=== PATIENT | male | born 1985 | race Two or more races ===

== ENCOUNTER 2019-12-23 20:29 | Emergency (ER) | payer MEDICAID ==
[~2019-12-23] VITALS: Ht 172.7 cm; Wt 80.7 kg
[2019-12-23 20:41] VITALS: Ht 172.7 cm; Wt 80.7 kg
[2019-12-23 21:40] VITALS: BP 138/87
== END 2019-12-23 21:40 | disposition home or self-care (01) ==
LOC: D.ER 20:29
DX: B34.9 Viral infection, unspecified (principal); R07.9 Chest pain, unspecified; R19.7 Diarrhea, unspecified

== ENCOUNTER 2020-08-03 10:06 | Inpatient (IN) | payer OTHER ==
[~2020-08-03] VITALS: Ht 172.7 cm; Wt 79.5 kg
[~2020-08-03 10:06] MED LIST: COLACE100 MG PO; CRANBERRY PILLS; DULCOLAX5 MG PO; LIBRIUM25 MG PO; STERAPRED DS 1010 MG PO; VITAMIN D10000 UNIT PO; VITAMIN E600 UNIT PO
[2020-08-03 10:16] LABS: BASOPHILS 0.1 % (0-2); EOSINOPHILS 0 % (0-7); HEMATOCRIT 38.3 % (42.0-54.0); HEMOGLOBIN 13.4 g/dL (13.5-17.5); IMMATURE GRANULOCYTES 0.2 % (0-5); LYMPHOCYTE ABS# 0.64 10x3/uL (1.32-3.57); LYMPHOCYTES 7.3 % (15-50); MCH 32.4 pg (26.0-34.0); MCV 92.5 fL (80.0-100.0); MEAN PLATELET VOLUME 9.8 fL (7.4-10.4); MONOCYTES 6.9 % (2-11); NEUTROPHIL ABS# 7.47 10x3/uL (1.78-5.38); NEUTROPHILS 85.5 % (40-80); PLATELET COUNT 188 10x3/uL (130-400); RBC 4.14 10x6/uL (4.20-6.10); WBC 8.7 10x3/uL (4.8-10.8)
[2020-08-03 10:31] LABS: CALC OSMOLALITY 264 mosm/kg (275-300); CARBON DIOXIDE 29.2 mmol/L (21.0-32.0); CHLORIDE - SERUM 94 mmol/L (98-107); GLUCOSE 148 mg/dL (74-106); POTASSIUM - SERUM 3.5 mmol/L (3.5-5.1); SODIUM 131 mmol/L (136-145); UREA NITROGEN 9 mg/dL (7-18); eGFR NON AFRICAN AMERICAN 90 mL/min (90-120)
[2020-08-03 10:47] LABS: ALBUMIN 4.1 g/dL (3.4-5.0); ALKALINE PHOSPHATASE 76 U/L (30-120); ALT (SGPT) 58 U/L (10-68); BILIRUBIN - TOTAL 3.66 mg/dL (0.2-1.3); CKMB 10.1 U/L (0.0-3.6); MAGNESIUM - SERUM 1.1 mg/dL (1.8-2.4); PROTEIN - SERUM 8.5 g/dL (6.4-8.2); THYROID STIMULATING HORMONE 0.99 uIU/mL (0.36-3.74)
[2020-08-03 10:48] LABS: CREATINE KINASE 2088 UL (21-232); TROPONIN-I < 0.017 ng/mL (0.000-0.060)
[2020-08-03 11:00] LABS: APTT 25.5 SECONDS (22.8-39.4); INR 1.21 (0.85-1.17); PROTIME 14.2 SECONDS (11.6-15.0)
[2020-08-03 16:41] VITALS: Ht 172.7 cm; Wt 79.5 kg
[2020-08-03 20:00] VITALS: BP 131/88
[2020-08-03 21:00] VITALS: BP 137/88
[2020-08-04] VITALS: BP 135/89
[2020-08-04 04:00] VITALS: BP 136/92
[2020-08-04 06:52] LABS: BASOPHILS 0.2 % (0-2); EOSINOPHILS 0.2 % (0-7); HEMATOCRIT 38.4 % (42.0-54.0); HEMOGLOBIN 12.8 g/dL (13.5-17.5); IMMATURE GRANULOCYTES 0.3 % (0-5); LYMPHOCYTE ABS# 1.44 10x3/uL (1.32-3.57); LYMPHOCYTES 23.4 % (15-50); MCH 31.8 pg (26.0-34.0); MCHC 33.3 g/dL (31.0-37.0); MEAN PLATELET VOLUME 10.9 fL (7.4-10.4); MONOCYTES 8.9 % (2-11); NEUTROPHIL ABS# 4.13 10x3/uL (1.78-5.38); PLATELET COUNT 199 10x3/uL (130-400); RBC 4.02 10x6/uL (4.20-6.10); RDW 11.8 % (11.5-14.5)
[2020-08-04 06:57] LABS: MCV 95.5 fL (80.0-100.0); WBC 6.2 10x3/uL (4.8-10.8)
--- NOTE | 2020-08-04 07:10 | NUR ---
PT RESTING IN BED WITH EYES OPEN. RESPIRATIONS ARE EVEN AND UNLABORED. PT IS AAO X 4 AND ANSWERS ALL QUESTIONS APPROPRIATELY. PT DENIES PRESENCE OF PAIN/N/V/DYSPNEA/SOB AT THIS TIME. PIV TO RIGHT FA INFUSING PER ORDER WITHOUT COMPROMISE. INCENTIVE SPIROMETER AT BEDSIDE AND ENCOURAGED. GOOD EFFORT WITH IS AND 1200 REACHED. PT VERBALIZES UNDERSTANDING AND DENIES FURTHER QUESTIONS. PT DENIES PRESENCE OF DIZZINESS/NUMBNESS/TINGLING. BED IS IN THE LOWEST POSITION. CALL LIGHT AND BEDSIDE TABLE ARE WITHIN REACH. SIDE RAILS X 2. PT DENIES FURTHER NEEDS. WILL CONT TO MONITOR.
[2020-08-04 07:29] LABS: ALBUMIN 3.3 g/dL (3.4-5.0); ALKALINE PHOSPHATASE 65 U/L (30-120); ALT (SGPT) 48 U/L (10-68); CALCIUM 8.5 mg/dL (8.5-10.1); CARBON DIOXIDE 27.8 mmol/L (21.0-32.0); CHLORIDE - SERUM 96 mmol/L (98-107); CREATININE - SERUM 0.9 mg/dL (0.6-1.3); MAGNESIUM - SERUM 1.5 mg/dL (1.8-2.4); PHOSPHOROUS 2.9 mg/dL (2.5-4.9); PROTEIN - SERUM 7.4 g/dL (6.4-8.2); SODIUM 135 mmol/L (136-145); eGFR NON AFRICAN AMERICAN > 90 mL/min (90-120)
[2020-08-04 07:31] LABS: CALC OSMOLALITY 266 mosm/kg (275-300); GLUCOSE 80 mg/dL (74-106); UREA NITROGEN 6 mg/dL (7-18)
[2020-08-04 07:33] LABS: INR 1.18 (0.85-1.17); PROTIME 13.9 SECONDS (11.6-15.0)
[2020-08-04 07:34] LABS: POTASSIUM - SERUM 2.7 mmol/L (3.5-5.1)
--- NOTE | 2020-08-04 07:35 | NUR ---
CRITICAL LAB VALUE RECD FROM RENATA IN LAB. ORDER PLACED FOR K+ REDRAW TO VERIFY CRITICAL RESULT.
[2020-08-04 08:22] VITALS: BP 107/70
[2020-08-04 10:12] LABS: HEPATITIS C ANTIBODY <0.1 S/CO RAT (0.0-0.9)
[2020-08-04 11:22] LABS: UDS - AMPHET NEGATIVE QUAL (NEGATIVE); UDS - BARB NEGATIVE QUAL (NEGATIVE); UDS - BENZO POSITIVE QUAL (NEGATIVE); UDS - COCAINE NEGATIVE QUAL (NEGATIVE); UDS - OPIATE NEGATIVE QUAL (NEGATIVE); UDS - PCP NEGATIVE QUAL (NEGATIVE); UDS - THC NEGATIVE QUAL (NEGATIVE)
[2020-08-04 11:38] LABS: BACTERIA FEW HPF (NONE SEEN); BILIRUBIN NEGATIVE (NEGATIVE); KETONE SMALL mg/dL (NEGATIVE); NITRITE NEGATIVE (NEGATIVE); SQUAMOUS EPITHELIAL RARE HPF (0-4); UROBILINOGEN NORMAL mg/dL (< 2); WHITE CELLS - URINE OCC HPF (0-1)
[2020-08-04 12:43] VITALS: BP 151/87
[2020-08-04 16:54] VITALS: BP 138/87
[2020-08-04 20:00] VITALS: BP 146/112
[2020-08-05] VITALS: BP 151/87
--- NOTE | 2020-08-05 00:11 | NUR ---
I have reviewed this patient and I concur with the Shift Assessment completed by the Licensed Practical Nurse today this shift.
[2020-08-05 04:00] VITALS: BP 135/86
[2020-08-05 05:40] LABS: BASOPHILS 0.1 % (0-2); EOSINOPHILS 0.7 % (0-7); HEMATOCRIT 37.3 % (42.0-54.0); HEMOGLOBIN 12.8 g/dL (13.5-17.5); IMMATURE GRANULOCYTES 0.4 % (0-5); LYMPHOCYTES 21.6 % (15-50); MCH 32.1 pg (26.0-34.0); MCHC 34.3 g/dL (31.0-37.0); MEAN PLATELET VOLUME 10.8 fL (7.4-10.4); MONOCYTES 11.5 % (2-11); NEUTROPHIL ABS# 4.56 10x3/uL (1.78-5.38); NEUTROPHILS 65.7 % (40-80); PLATELET COUNT 189 10x3/uL (130-400); RBC 3.99 10x6/uL (4.20-6.10); RDW 11.7 % (11.5-14.5)
[2020-08-05 05:45] LABS: MCV 93.5 fL (80.0-100.0)
[2020-08-05 06:02] LABS: ALBUMIN 3.3 g/dL (3.4-5.0); ALKALINE PHOSPHATASE 62 U/L (30-120); ALT (SGPT) 49 U/L (10-68); BILIRUBIN - TOTAL 2.52 mg/dL (0.2-1.3); CALC OSMOLALITY 266 mosm/kg (275-300); CALCIUM 8.9 mg/dL (8.5-10.1); CARBON DIOXIDE 24.6 mmol/L (21.0-32.0); CHLORIDE - SERUM 99 mmol/L (98-107); CREATININE - SERUM 0.9 mg/dL (0.6-1.3); GLUCOSE 88 mg/dL (74-106); MAGNESIUM - SERUM 1.4 mg/dL (1.8-2.4); PROTEIN - SERUM 7.3 g/dL (6.4-8.2); SODIUM 135 mmol/L (136-145); UREA NITROGEN 7 mg/dL (7-18); eGFR NON AFRICAN AMERICAN > 90 mL/min (90-120)
[2020-08-05 06:14] LABS: PHOSPHOROUS 4.2 mg/dL (2.5-4.9)
[2020-08-05 06:20] LABS: POTASSIUM - SERUM 2.9 mmol/L (3.5-5.1)
[2020-08-05 08:28] VITALS: BP 127/102
--- NOTE | 2020-08-05 10:00 | NUR ---
ASSESSMENT PER FLOW SHEET. PATIENT IS WITHOUT DISTRESS. DENIES NEEDS. CALL LIGHT IN REACH.
[2020-08-05] MEDS ORDERED: FLORAJEN3 CAPS460 MG PO (10:50)
[2020-08-05] MEDS ORDERED: MUCINEX600 MG PO (10:50)
[2020-08-05] MEDS ORDERED: TESSALON PERLE100 MG PO (10:50)
[2020-08-05] MEDS ORDERED: FOLIC ACID1 MG PO (10:51)
[2020-08-05] MEDS ORDERED: OMNICEF300 MG PO (10:51)
[2020-08-05] MEDS ORDERED: VITAMIN B-1100 M1 PO (10:51)
[2020-08-05] MEDS ORDERED: LIBRIUM25 MG PO ×2 (10:52→11:34)
[2020-08-05] MEDS ORDERED: ZITHROMAX500 MG PO (10:52)
[2020-08-05 11:05] VITALS: BP 152/99
[2020-08-05 11:07] VITALS: BP 152/99
[2020-08-05] MEDS ORDERED: CLONIDINE HCL0.1 MG PO (11:34)
--- NOTE | 2020-08-05 12:49 | MORECARE ---
CASE MANAGEMENT DISCHARGE SUMMARY PATIENT: DARCY RUIZ JR UNIT: [id number] ADM DATE: 08/04/20 AGE: 34 : 83 SEX: M ROOM/BED: D.2210 AUTHOR: RASTA,DOC PHYSICIAN: REFERRING PHYSICIAN: PARAM GLASS MD DATE OF SERVICE: 08/05/20 Case Management Discharge Planning Summary CT Patient Name: DARCY RUIZ Attending MD : PARAM WEIR Medical Record: [id number] Encounter : [id number] Facility : [address] [place] [address] Medical Admission Date : 08/04/2020 8:27 Center Discharge Date : [address] [place] [address] Date of : DC Plan ID : [id number] Age/Sex/Martia : 34/ M/D Printed on : 08/05/20 12:48 CT DCP Review Details Anticipated D/C: Expected LOS : Case Status : INITIATED - Initial Reviewe: [id number] - Mellissa Blanco Initial Review: 08/03/2020 Planned Disposi: 01 - Home or Self Care (Routine Discharge) Final Discharge: 01 - Home or Self Care (Routine Discharge) Final Reviewer : : Final Review : Comments CT Entered Date Type Reviewer 08/05/20 12:25 CT Discharge Planning Mellissa Blanco Comment CM met with patient to complete initial dc planning assessment. CM educated patient on the CM role and verbal consent given by patient to complete assessment. Patient is living at home with his mother where he states is safe. At discharge patient plans to return there and feels this is a safe discharge. His cousin Renetta will be his courier driver home. He is very eager to get help and states he will be successful at it. He states he has transportation to and from all the md's or follow up appointments that he needs. He will pick pack worker his medication this time. CM discussed availability of home health, rehab services, and medical equipment. Patient denied known discharge needs at this time. CM will continue to follow and will assist as needed with dc plans/needs. DCP Focus Questions & Answers DCP Screen High Risk Factors: Readmission within past 30 days DCP Evaluation Patient's ability to cope with chronic illness a. Adequate (0-3 ED visits in 6 mos., adequate financial resources, attends scheduled appts.) Patient and/or caregiver agree upon recommended Yes discharge plan? Family / Caregiver's ability to cope with chronic a. Adequate (ability to meet patient's illness: medical needs, ensures patient attends medical appts.) Patient's current cognitive status: *Oriented to person, place, situation, time and present Does the patient have the ability to pay for or Yes attain post discharge needs / services? Functional screen assessment: Can meet basic needs but may require referral for resources Family / Caregiver's ability to cope with chronic a. Adequate (ability to meet patient's illness: medical needs, ensures patient attends medical appts.) Physical Status: Independent with ADL's Equipment needed for post hospitalization: None Is there a likelihood that the patient will No require additional services to return to the preadmission environment? Living Arrangements: Home with Parents Patient with capacity for self-care or can be Yes cared for in same environment as prior to hospitalization? Living arrangements comments: LIVING WITH MOM Baseline cognitive status: *Oriented to person, place, situation, time and present Physical environment modification needed / No anticipated for discharge: Preadmission facility can/cannot provide post Can - at same level of care as preadmission hospital level of care needs: Medication Management: Patient states can read and understand medication labels Planned post hospital services available for Yes patient? Pharmacy name(s): [facility] Planned post hospital services covered by Yes insurance plan? Does Patient have transportation to get home and Yes to follow-up medical appointments when discharged from the hospital? Would patient like to participate in any Care Not applicable Coordination programs (if applicable): Comments: RENETTA WILL DRIVE HIM HOME Other Care Coordination programs/comments: HAS F/U WITH DR VERA Does the patient have electricity at home? Yes Does the patient have running water in their Yes house? Equipment in use: None Equipment agency name and contact information: [employer] ( MOTHER) [phone] Mental health screen: Patient states under treatment and unable to adhere to psych medications Psychosocial status: Independent adult (18-64) Abuse/Neglect: Alcohol use - History of Abuse/neglect comments: GAVE INFORMATION HE STATES HE WILL SEEK HELP AT [facility] Resources / Services in place: [facility] - Outpatient DCP Re-evaluation Would patient like to participate in any Care Not applicable Coordination programs (if applicable): [facility] DARCY RUIZ MR#: [id number] /Age/Sex/Xhnuwq47-Sum-03 /34/M /D Attending Physician Name: PARAM GLASS [id number] Patient Account:[id number] [facility] Page -1 of 1 All edits/amendments must be made on the electronic document DICTATION DATE: 08/05/201247 POTLINE MONITOR: YANELI 08/05/201247 RPT#: [id number] DC DATE: STATUS: ADM IN [facility] [address] [place] [address] END OF REPORT
--- NOTE | 2020-08-05 13:03 | NUR ---
DISCHRGE INSTRUCTIONS,STATES UNDERSTANDING. IV DCD WITH CATH TIP INTACT. LEFT UNIT AMBULATORY. DECLINED WHEELCHAIR.
--- NOTE | 2020-08-05 13:28 | MORECARE ---
CASE MANAGEMENT DISCHARGE SUMMARY PATIENT: DARCY RUIZ JR UNIT: [id number] ADM DATE: 08/04/20 AGE: 34 : 81 SEX: M ROOM/BED: D.2210 AUTHOR: RASTA,DOC PHYSICIAN: REFERRING PHYSICIAN: PARAM GLASS MD DATE OF SERVICE: 08/05/20 Case Management Discharge Planning Summary CT Patient Name: DARCY RUIZ Attending MD : PARAM WEIR Medical Record: [id number] Encounter : [id number] Facility : [address] [place] [address] Medical Admission Date : 08/04/2020 8:27 Center Discharge Date : 08/05/[address] [place] [address] Date of : DC Plan ID : [id number] Age/Sex/Martia : 34/ M/D Printed on : 08/05/20 13:27 CT DCP Review Details Anticipated D/C: Expected LOS : Case Status : INITIATED - Initial Reviewe: [id number] - Mellissa Blanco Initial Review: 08/03/2020 Planned Disposi: 01 - Home or Self Care (Routine Discharge) Final Discharge: 01 - Home or Self Care (Routine Discharge) Final Reviewer : : Final Review : Comments CT Entered Date Type Reviewer 08/05/20 12:25 CT Discharge Planning Mellissa Blanco Comment CM met with patient to complete initial dc planning assessment. CM educated patient on the CM role and verbal consent given by patient to complete assessment. Patient is living at home with his mother where he states is safe. At discharge patient plans to return there and feels this is a safe discharge. His cousin Renetta will be his spike driver home. He is very eager to get help and states he will be successful at it. He states he has transportation to and from all the md's or follow up appointments that he needs. He will tow picker his medication this time. CM discussed availability of home health, rehab services, and medical equipment. Patient denied known discharge needs at this time. CM will continue to follow and will assist as needed with dc plans/needs. DCP Focus Questions & Answers DCP Screen High Risk Factors: Readmission within past 30 days DCP Evaluation Patient's ability to cope with chronic illness a. Adequate (0-3 ED visits in 6 mos., adequate financial resources, attends scheduled appts.) Patient and/or caregiver agree upon recommended Yes discharge plan? Family / Caregiver's ability to cope with chronic a. Adequate (ability to meet patient's illness: medical needs, ensures patient attends medical appts.) Patient's current cognitive status: *Oriented to person, place, situation, time and present Does the patient have the ability to pay for or Yes attain post discharge needs / services? Functional screen assessment: Can meet basic needs but may require referral for resources Family / Caregiver's ability to cope with chronic a. Adequate (ability to meet patient's illness: medical needs, ensures patient attends medical appts.) Physical Status: Independent with ADL's Equipment needed for post hospitalization: None Is there a likelihood that the patient will No require additional services to return to the preadmission environment? Living Arrangements: Home with Parents Patient with capacity for self-care or can be Yes cared for in same environment as prior to hospitalization? Living arrangements comments: LIVING WITH MOM Baseline cognitive status: *Oriented to person, place, situation, time and present Physical environment modification needed / No anticipated for discharge: Preadmission facility can/cannot provide post Can - at same level of care as preadmission hospital level of care needs: Medication Management: Patient states can read and understand medication labels Planned post hospital services available for Yes patient? Pharmacy name(s): [facility] Planned post hospital services covered by Yes insurance plan? Does Patient have transportation to get home and Yes to follow-up medical appointments when discharged from the hospital? Would patient like to participate in any Care Not applicable Coordination programs (if applicable): Comments: RENETTA WILL DRIVE HIM HOME Other Care Coordination programs/comments: HAS F/U WITH DR VERA Does the patient have electricity at home? Yes Does the patient have running water in their Yes house? Equipment in use: None Equipment agency name and contact information: [employer] ( MOTHER) [phone] Mental health screen: Patient states under treatment and unable to adhere to psych medications Psychosocial status: Independent adult (18-64) Abuse/Neglect: Alcohol use - History of Abuse/neglect comments: GAVE INFORMATION HE STATES HE WILL SEEK HELP AT [facility] Resources / Services in place: [facility] - Outpatient DCP Re-evaluation Would patient like to participate in any Care Not applicable Coordination programs (if applicable): [facility] DARCY RUIZ MR#: [id number] /Age/Sex/Vatzbq07-Ijc-27 //M /D Attending Physician Name: PARAM GLASS [id number] Patient Account:[id number] [facility] Page -1 of 1 All edits/amendments must be made on the electronic document DICTATION DATE: 08/05/201326 DRAFTING SUPERVISOR: YANELI 08/05/20 1327 RPT#: [id number] DC DATE:08/05/20 STATUS: DIS IN [facility] [address] [place] [address] END OF REPORT
--- NOTE | 2020-08-05 14:26 | NUR ---
CALL FROM PATIENT RE... SAYS HE LOST SCRIPT FOR [employer]. I HAVE SPOKEN WITH SELENE STAUFFER APN. WE CANNOT GET REPLACEMENT SCRIPT FOR MED BECAUSE IT IS A NARCOTIC.
--- NOTE | 2020-08-06 17:58 | MORECARE ---
CASE MANAGEMENT DISCHARGE SUMMARY PATIENT: DARCY RUIZ JR UNIT: [id number] ADM DATE: 08/04/20 AGE: 34 : 81 SEX: M ROOM/BED: D.2210 AUTHOR: RASTA,DOC PHYSICIAN: REFERRING PHYSICIAN: PARAM GLASS MD DATE OF SERVICE: 08/06/20 Case Management Discharge Planning Summary CT Patient Name: DARCY RUIZ Attending MD : PARAM WEIR Medical Record: [id number] Encounter : [id number] Facility : [address] [place] [address] Medical Admission Date : 08/04/2020 8:27 Center Discharge Date : 08/05/[address] [place] [address] Date of : DC Plan ID : [id number] Age/Sex/Martia : 34/ M/D Printed on : 08/06/20 17:57 CT DCP Review Details Anticipated D/C: Expected LOS : Case Status : INITIATED - Initial Reviewe: [id number] - Mellissa Blanco Initial Review: 08/03/2020 Planned Disposi: 01 - Home or Self Care (Routine Discharge) Final Discharge: 01 - Home or Self Care (Routine Discharge) Final Reviewer : : Final Review : Comments CT Entered Date Type Reviewer 08/05/20 12:25 CT Discharge Planning Mellissa Blanco Comment CM met with patient to complete initial dc planning assessment. CM educated patient on the CM role and verbal consent given by patient to complete assessment. Patient is living at home with his mother where he states is safe. At discharge patient plans to return there and feels this is a safe discharge. His cousin Renetta will be his coach tour driver home. He is very eager to get help and states he will be successful at it. He states he has transportation to and from all the md's or follow up appointments that he needs. He will pick out hand his medication this time. CM discussed availability of home health, rehab services, and medical equipment. Patient denied known discharge needs at this time. CM will continue to follow and will assist as needed with dc plans/needs. DCP Focus Questions & Answers DCP Screen High Risk Factors: Readmission within past 30 days DCP Evaluation Patient's ability to cope with chronic illness a. Adequate (0-3 ED visits in 6 mos., adequate financial resources, attends scheduled appts.) Patient and/or caregiver agree upon recommended Yes discharge plan? Family / Caregiver's ability to cope with chronic a. Adequate (ability to meet patient's illness: medical needs, ensures patient attends medical appts.) Patient's current cognitive status: *Oriented to person, place, situation, time and present Does the patient have the ability to pay for or Yes attain post discharge needs / services? Functional screen assessment: Can meet basic needs but may require referral for resources Family / Caregiver's ability to cope with chronic a. Adequate (ability to meet patient's illness: medical needs, ensures patient attends medical appts.) Physical Status: Independent with ADL's Equipment needed for post hospitalization: None Is there a likelihood that the patient will No require additional services to return to the preadmission environment? Living Arrangements: Home with Parents Patient with capacity for self-care or can be Yes cared for in same environment as prior to hospitalization? Living arrangements comments: LIVING WITH MOM Baseline cognitive status: *Oriented to person, place, situation, time and present Physical environment modification needed / No anticipated for discharge: Preadmission facility can/cannot provide post Can - at same level of care as preadmission hospital level of care needs: Medication Management: Patient states can read and understand medication labels Planned post hospital services available for Yes patient? Pharmacy name(s): [facility] Planned post hospital services covered by Yes insurance plan? Does Patient have transportation to get home and Yes to follow-up medical appointments when discharged from the hospital? Would patient like to participate in any Care Not applicable Coordination programs (if applicable): Comments: RENETTA WILL DRIVE HIM HOME Other Care Coordination programs/comments: HAS F/U WITH DR VERA Does the patient have electricity at home? Yes Does the patient have running water in their Yes house? Equipment in use: None Equipment agency name and contact information: [employer] ( MOTHER) [phone] Mental health screen: Patient states under treatment and unable to adhere to psych medications Psychosocial status: Independent adult (18-64) Abuse/Neglect: Alcohol use - History of Abuse/neglect comments: GAVE INFORMATION HE STATES HE WILL SEEK HELP AT [facility] Resources / Services in place: [facility] - Outpatient DCP Re-evaluation Would patient like to participate in any Care Not applicable Coordination programs (if applicable): [facility] DARCY RUIZ MR#: [id number] /Age/Sex/Fybool12-Dvq-74 //M /D Attending Physician Name: PARAM GLASS [id number] Patient Account:[id number] [facility] Page -1 of 1 All edits/amendments must be made on the electronic document DICTATION DATE: 08/06/201756 DRUG ABUSE RESISTANCE EDUCATION OFFICER: YANELI 08/06/201756 RPT#: [id number] DC DATE:08/05/20 STATUS: DIS IN [facility] [address] [place] [address] END OF REPORT
== END 2020-08-05 13:05 | disposition home or self-care (01) | DRG 441 ==
LOC: D.ER 10:06 → D.MS 13:15 → OBSVTIME 13:15 → D.MS 08-04 08:27 → D.SDCHOLD 08-04 10:30 → D.MS 08-04 10:32
PROVIDERS: Family Medicine; ADMIT Emergency Medicine; ATTEND Emergency Medicine
DX: E80.6 Other disorders of bilirubin metabolism (principal); J18.9 Pneumonia, unspecified organism; E87.1 Hypo-osmolality and hyponatremia; K86.1 Other chronic pancreatitis; E83.42 Hypomagnesemia; F10.10 Alcohol abuse, uncomplicated; R11.2 Nausea with vomiting, unspecified

== ENCOUNTER 2020-10-19 00:20 | Inpatient (IN) | payer OTHER ==
[2020-10-19] VITALS (9 sets, daily range): BP systolic 135–163; BP diastolic 62–105; Ht 172.7 cm; Wt 79.5 kg
[~2020-10-19] VITALS: Ht 172.7 cm; Wt 79.5 kg
[~2020-10-19 00:20] MED LIST changes: +CLONIDINE HCL0.1 MG PO; +FLORAJEN3 CAPS460 MG PO; +FOLIC ACID1 MG PO; +MUCINEX600 MG PO; +OMNICEF300 MG PO; +TESSALON PERLE100 MG PO; +VITAMIN B-1100 M1 PO; +ZITHROMAX500 MG PO
[2020-10-19 01:20] LABS: EOSINOPHILS 0 % (0-7); HEMATOCRIT 42.9 % (42.0-54.0); HEMOGLOBIN 14.5 g/dL (13.5-17.5); LYMPHOCYTES 7.6 % (15-50); MCH 32.5 pg (26.0-34.0); MCHC 33.9 g/dL (31.0-37.0); MEAN PLATELET VOLUME 7.2 fL (7.4-10.4); NEUTROPHILS 87.4 % (40-80); RBC 4.47 10x6/uL (4.20-6.10); RDW 13.4 % (11.5-14.5); WBC 11.6 10x3/uL (4.8-10.8)
[2020-10-19 01:22] LABS: PLATELET COUNT 729 10x3/uL (130-400)
[2020-10-19 01:23] LABS: BILIRUBIN NEGATIVE (NEGATIVE); KETONE TRACE mg/dL (< 1+); NITRITE NEGATIVE (NEGATIVE); SQUAMOUS EPITHELIAL 1 HPF (0-4); UROBILINOGEN NORMAL mg/dL (< 2); WHITE CELLS - URINE 1 HPF (0-1)
[2020-10-19 01:23] LABS: CALC OSMOLALITY 270 mosm/kg (275-300); CALCIUM 8.8 mg/dL (8.5-10.1); CARBON DIOXIDE 27.6 mmol/L (21.0-32.0); CHLORIDE - SERUM 97 mmol/L (98-107); CREATININE - SERUM 0.9 mg/dL (0.6-1.3); POTASSIUM - SERUM 4.4 mmol/L (3.5-5.1); SODIUM 135 mmol/L (136-145); UREA NITROGEN 9 mg/dL (7-18); eGFR NON AFRICAN AMERICAN > 90 mL/min (90-120)
[2020-10-19 01:24] LABS: GLUCOSE 134 mg/dL (74-106)
[2020-10-19 01:48] LABS: UDS - AMPHET NEGATIVE QUAL (NEGATIVE); UDS - BARB NEGATIVE QUAL (NEGATIVE); UDS - BENZO POSITIVE QUAL (NEGATIVE); UDS - COCAINE NEGATIVE QUAL (NEGATIVE); UDS - OPIATE NEGATIVE QUAL (NEGATIVE); UDS - PCP NEGATIVE QUAL (NEGATIVE); UDS - THC NEGATIVE QUAL (NEGATIVE)
[2020-10-19 01:51] LABS: ALBUMIN 3.7 g/dL (3.4-5.0); ALKALINE PHOSPHATASE 59 U/L (30-120); ALT (SGPT) 67 U/L (10-68); BILIRUBIN - TOTAL 0.79 mg/dL (0.2-1.3); MAGNESIUM - SERUM 1.1 mg/dL (1.8-2.4); PROTEIN - SERUM 8.2 g/dL (6.4-8.2)
[2020-10-19 01:56] LABS: CREATINE KINASE 971 UL (21-232); LIPASE 5502 U/L (73-393)
[2020-10-19 01:57] LABS: CKMB 1.8 U/L (0.0-3.6)
[2020-10-19 09:29] LABS: MAGNESIUM - SERUM 1.6 mg/dL (1.8-2.4); PHOSPHOROUS 3.8 mg/dL (2.5-4.9)
[2020-10-19 09:44] LABS: INR 1.26 (0.85-1.17); PROTIME 14.6 SECONDS (11.6-15.0)
--- NOTE | 2020-10-19 20:00 | NUR ---
ASSUMED CARE OF PT, PT PLACED ON TELEMETRY PER ORDER, 62 SR. MAG TREATED PER PROTOCOL. PT A&O C/O BACK PAIN AND ABD PAIN, NO ACUTE DISTRESS. CL IN REACH. WILL CTM.
[2020-10-19] MEDS ORDERED: MAG-OXIDE400 MG PO (23:43)
[2020-10-20] VITALS: BP 146/100
[2020-10-20 04:00] VITALS: BP 157/97
[2020-10-20 06:11] LABS: BASOPHILS 0.2 % (0-2); EOSINOPHILS 0.7 % (0-7); HEMATOCRIT 36.3 % (42.0-54.0); HEMOGLOBIN 12.5 g/dL (13.5-17.5); LYMPHOCYTES 13.6 % (15-50); MCH 33.3 pg (26.0-34.0); MCHC 34.4 g/dL (31.0-37.0); MCV 96.7 fL (80.0-100.0); MEAN PLATELET VOLUME 7.5 fL (7.4-10.4); MONOCYTES 4.3 % (2-11); NEUTROPHILS 81.2 % (40-80); RBC 3.76 10x6/uL (4.20-6.10); RDW 13.1 % (11.5-14.5); WBC 9.4 10x3/uL (4.8-10.8)
[2020-10-20 06:24] LABS: PLATELET COUNT 553 10x3/uL (130-400)
[2020-10-20 07:05] LABS: ALBUMIN 2.9 g/dL (3.4-5.0); ALKALINE PHOSPHATASE 79 U/L (30-120); BILIRUBIN - TOTAL 2.42 mg/dL (0.2-1.3); CALCIUM 8.7 mg/dL (8.5-10.1); CARBON DIOXIDE 28.6 mmol/L (21.0-32.0); CHLORIDE - SERUM 98 mmol/L (98-107); CREATININE - SERUM 0.9 mg/dL (0.6-1.3); GLUCOSE 103 mg/dL (74-106); PHOSPHOROUS 3.3 mg/dL (2.5-4.9); PROTEIN - SERUM 6.8 g/dL (6.4-8.2); SODIUM 134 mmol/L (136-145); eGFR NON AFRICAN AMERICAN > 90 mL/min (90-120)
[2020-10-20 07:10] LABS: ALT (SGPT) 47 U/L (10-68); CALC OSMOLALITY 265 mosm/kg (275-300); CREATINE KINASE 454 UL (21-232); POTASSIUM - SERUM 3.7 mmol/L (3.5-5.1); UREA NITROGEN 6 mg/dL (7-18)
[2020-10-20 07:21] LABS: LIPASE 2836 U/L (73-393)
[2020-10-20 08:44] VITALS: BP 162/98
--- NOTE | 2020-10-20 08:49 | NUR ---
PATIENT AAOX4 RESP EVEN AND NON LABORED, NO S/S OF DISTRESS, MEDICATIONS ADMINISTERED WITH NO COMPLICATIONS, IV FLUIDS INFUSING, NO FURTHER NEEDS AT THIS TIME, CLIR, BLP
[2020-10-20 13:08] VITALS: BP 149/99
[2020-10-20 16:56] VITALS: BP 193/125
--- NOTE | 2020-10-20 18:30 | NUR ---
PATIENT IV INFILTRATED, X1 STICK TO LEFT FOREARM NO COMPLICATIONS, NO FURTHER NEEDS AT THIS TIME, CLIR, BLP
[2020-10-20 20:22] VITALS: BP 164/115
[2020-10-21 01:38] VITALS: BP 144/84
[2020-10-21 05:49] LABS: MAGNESIUM - SERUM 1.9 mg/dL (1.8-2.4)
[2020-10-21 05:50] LABS: PHOSPHOROUS 4.3 mg/dL (2.5-4.9)
[2020-10-21 06:37] VITALS: BP 165/98
--- NOTE | 2020-10-21 07:00 | NUR ---
PT LYING IN BED WITH HOB ELEVATED 30 DEGREES. RESP EVEN AND UNLABORED. AAO X4. DENIES NEEDS AT THIS TIME. CLIR. BED IN LOWEST POSITION. SIDE RAILS X2
[2020-10-21 08:37] LABS: BASOPHILS 0.4 % (0-2); EOSINOPHILS 1.2 % (0-7); HEMATOCRIT 39.1 % (42.0-54.0); HEMOGLOBIN 13.1 g/dL (13.5-17.5); LYMPHOCYTES 14.3 % (15-50); MCH 32.6 pg (26.0-34.0); MCHC 33.4 g/dL (31.0-37.0); MCV 97.6 fL (80.0-100.0); MONOCYTES 5.3 % (2-11); NEUTROPHILS 78.8 % (40-80); PLATELET COUNT 551 10x3/uL (130-400); RBC 4.01 10x6/uL (4.20-6.10); RDW 13.2 % (11.5-14.5)
[2020-10-21 08:55] LABS: CALC OSMOLALITY 265 mosm/kg (275-300); CALCIUM 9.1 mg/dL (8.5-10.1); CARBON DIOXIDE 27.4 mmol/L (21.0-32.0); CHLORIDE - SERUM 99 mmol/L (98-107); GLUCOSE 100 mg/dL (74-106); POTASSIUM - SERUM 3.8 mmol/L (3.5-5.1); SODIUM 134 mmol/L (136-145); UREA NITROGEN 6 mg/dL (7-18); eGFR NON AFRICAN AMERICAN 89 mL/min (90-120)
[2020-10-21 09:03] LABS: ALBUMIN 3.2 g/dL (3.4-5.0); ALKALINE PHOSPHATASE 76 U/L (30-120); ALT (SGPT) 41 U/L (10-68); BILIRUBIN - TOTAL 2.13 mg/dL (0.2-1.3); PROTEIN - SERUM 7.4 g/dL (6.4-8.2)
[2020-10-21 09:05] LABS: LIPASE 1298 U/L (73-393)
[2020-10-21 09:44] LABS: WBC 6.9 10x3/uL (4.8-10.8)
--- NOTE | 2020-10-21 11:30 | NUR ---
ANTHONY WALSH, ENTERED PT'S ROOM AND SAW PT WITH SHEET WRAPPED AROUND FA. PT STATES HE REMOVED HIS IV SINCE HE WAS GETTING DISCHARGED. DRESSING APPLIED TO SITE. MINIMAL BLEEDING NOTED. CLIR. BED IN LOWEST POSITION. SIDE RAILS X2
--- NOTE | 2020-10-21 12:42 | NUR ---
PT DISCHARGED HOME WITH ALL BELONGINGS. DISCHARGE INSTRUCTIONS PROVIDED VERBALLY AND WRITTEN. PT VERBALIZED UNDERSTANDING
== END 2020-10-21 12:43 | disposition home or self-care (01) | DRG 896 ==
LOC: D.ER 00:20 → D.M2 02:39 → D.EDHOLD 02:39 → D.M2 11:42
PROVIDERS: Family Medicine; ADMIT Family Medicine; ATTEND Family Medicine
DX: F10.239 Alcohol dependence with withdrawal, unspecified (principal); K85.20 Alcohol induced acute pancreatitis without necrosis or infection; I10 Essential (primary) hypertension; Y90.6 Blood alcohol level of 120-199 mg/100 ml; F10.229 Alcohol dependence with intoxication, unspecified